=== PATIENT | male | born 1935 | race Caucasian/White ===

== ENCOUNTER → 2016-10-15 | Outpatient (CLI) | payer MEDICARE, OTHER ==
[~2016-10-15] MED LIST: AMIT10TA6; ASPI325T4 PO; OMEP20CA12; PANT40TA3; SUCR1TAB
--- NOTE | 2016-10-15 15:41 | Diagnostic Imaging Report ---
INDICATION: Leg swelling, aortic regurgitation. PA and lateral chest obtained at 02:48 p.m. and compared with 12/22/2015. Heart is mildly enlarged. There is mild central vascular prominence. There is no consolidation, pneumothorax, or pleural fluid. There is no sign of interstitial edema. There is some minimal atelectatic change in the left base. IMPRESSION: Cardiomegaly and tortuous aorta. Mild central vascular prominence without edema. No consolidation or pleural fluid. There is some minimal atelectatic change in the left base. Dictated by: Dictated on workstation # [id number]
== END ==
LOC: RAD 14:37
PROVIDERS: ATTEND Family Medicine
DX: M79.89 Other specified soft tissue disorders (principal); I35.1 Nonrheumatic aortic (valve) insufficiency; I51.7 Cardiomegaly
CPT/HCPCS: 71020

== ENCOUNTER → 2016-10-15 | Outpatient (REF) | payer MEDICARE, OTHER ==
[2016-10-15 15:24] LABS: BASOPHILS % (AUTO) 0 % (0-2); EOSINOPHILS # (AUTO) 0.1 10^3uL; EOSINOPHILS % (AUTO) 2 % (0-4); LYMPHOCYTES # (AUTO) 1.1 X10^3; MEAN CORPUSCULAR HEMOGLOBIN 28.4 PG (26.0-34.0); MEAN CORPUSCULAR VOLUME 86 FL (80-100); MONOCYTES # (AUTO) 0.5 X10^3; MONOCYTES % (AUTO) 8 % (3-11); NEUTROPHILS # (AUTO) 4.3 X10^3; NEUTROPHILS % (AUTO) 71 % (51-67); PLATELET COUNT 279 10^3uL (150-450); WHITE BLOOD COUNT 6.08 10^3uL (4.0-11.0)
[2016-10-15 15:29] LABS: ALBUMIN 3.5 g/dL (3.4-5.0); ANION GAP 12.4 MEQ/L (3-15); BILIRUBIN,URINE Negative (Negative); CALCULATED IONIZED CALCIUM 4.3 mg/dL (3.8-4.6); CLARITY,URINE Clear; COLOR,URINE Yellow; GLUCOSE, URINE (UA) Negative (Negative); LEUKOCYTE ESTERASE ,URINE Negative (Negative); TOTAL PROTEIN 5.7 g/dL (6.4-8.5); UROBILINOGEN,URINE 0.2 mg/dL (0.2-1.0)
== END ==
LOC: LAB 15:13
PROVIDERS: ATTEND Family Medicine
DX: I35.1 Nonrheumatic aortic (valve) insufficiency (principal); R60.1 Generalized edema; I10 Essential (primary) hypertension; M79.89 Other specified soft tissue disorders
CPT/HCPCS: 71020; 80053; 81003; 83880; 84443; 85025

== ENCOUNTER → 2016-10-22 | Outpatient (REF) | payer MEDICARE, OTHER ==
[2016-10-22 13:44] LABS: ANION GAP 13.8 MEQ/L (3-15)
== END ==
LOC: LAB 13:03
PROVIDERS: ATTEND Family Medicine
DX: R60.0 Localized edema (principal)
CPT/HCPCS: 80048

== ENCOUNTER → 2016-10-25 | Outpatient (CLI) | payer MEDICARE, OTHER | LOC: RAD 08:55 | PROVIDERS: ATTEND Family Medicine | DX: R60.0 Localized edema (principal); I35.1 Nonrheumatic aortic (valve) insufficiency; R60.1 Generalized edema | CPT/HCPCS: 93306; 93970 ==

== ENCOUNTER → 2016-11-18 | Outpatient (REF) | payer MEDICARE, OTHER ==
[2016-11-18 12:33] LABS: ANION GAP 15.6 MEQ/L (3-15)
== END ==
LOC: LAB 12:03
PROVIDERS: ATTEND Family Medicine
DX: I35.1 Nonrheumatic aortic (valve) insufficiency (principal); I50.33 Acute on chronic diastolic (congestive) heart failure
CPT/HCPCS: 80048; 85014; 85018

== ENCOUNTER → 2016-12-03 | Outpatient (CLI) | payer MEDICARE, OTHER ==
[2016-12-03 09:05] LABS: BASOPHILS % (AUTO) 1 % (0-2); EOSINOPHILS # (AUTO) 0.1 10^3uL; EOSINOPHILS % (AUTO) 3 % (0-4); LYMPHOCYTES # (AUTO) 1.2 X10^3; MEAN CORPUSCULAR HEMOGLOBIN 29.5 PG (26.0-34.0); MEAN CORPUSCULAR HGB CONC 34.2 g/dL (31.0-37.0); MEAN CORPUSCULAR VOLUME 86 FL (80-100); MEAN PLATELET VOLUME 9.7 FL (6.0-9.5); MONOCYTES # (AUTO) 0.4 X10^3; MONOCYTES % (AUTO) 8 % (3-11); NEUTROPHILS # (AUTO) 2.9 X10^3; NEUTROPHILS % (AUTO) 63 % (51-67); PLATELET COUNT 317 10^3uL (150-450); WHITE BLOOD COUNT 4.67 10^3uL (4.0-11.0)
== END ==
LOC: LAB 08:46
PROVIDERS: ATTEND Family Medicine
DX: I34.0 Nonrheumatic mitral (valve) insufficiency (principal); I10 Essential (primary) hypertension; E78.5 Hyperlipidemia, unspecified; Z86.73 Personal history of transient ischemic attack (TIA), and cerebral infarction without residual deficits; I35.1 Nonrheumatic aortic (valve) insufficiency
CPT/HCPCS: 36415; 80061; 84443; 85025

== ENCOUNTER → 2017-01-06 | Outpatient (REF) | payer MEDICARE, OTHER ==
[2017-01-06 17:09] LABS: ANION GAP 16.9 MEQ/L (3-15)
== END ==
LOC: LAB 16:32
PROVIDERS: ATTEND Family Medicine
DX: I10 Essential (primary) hypertension (principal)
CPT/HCPCS: 80048

== ENCOUNTER → 2017-02-10 | Outpatient (REF) | payer MEDICARE, OTHER ==
[2017-02-10 15:29] LABS: ANION GAP 14.5 MEQ/L (3-15)
== END ==
LOC: LAB 14:59
PROVIDERS: ATTEND Family Medicine
DX: I35.1 Nonrheumatic aortic (valve) insufficiency (principal); I10 Essential (primary) hypertension
CPT/HCPCS: 80048